=== PATIENT | female | born 1990 | race Two or more races ===

== ENCOUNTER 2022-05-24 21:35 | Emergency (ER) | payer MEDICAID ==
[~2022-05-24] VITALS: Ht 170.2 cm; Wt 205.0 kg
[2022-05-24 23:11] VITALS: BP 144/96
== END 2022-05-25 00:45 | disposition left against medical advice (07) ==
LOC: ER 21:35
DX: R10.9 Unspecified abdominal pain (principal); Z53.21 Procedure and treatment not carried out due to patient leaving prior to being seen by health care provider

== ENCOUNTER 2022-10-27 23:34 | Emergency (ER) | payer MEDICAID ==
[~2022-10-27] VITALS: Ht 170.2 cm; Wt 160.8 kg
[2022-10-27 23:56] VITALS: BP 149/104
[2022-10-28] MEDS ORDERED: IBUP-1455 PO (00:33)
[2022-10-28] MEDS ORDERED: AUG875T PO (00:33)
[2022-10-28] MEDS ORDERED: KETOROLAC TROMETH 30 MG/ML 1ML VIAL IM ONE (00:45)
== END 2022-10-28 00:40 | disposition home or self-care (01) ==
LOC: ER 23:34
DX: K04.7 Periapical abscess without sinus (principal); Z88.1 Allergy status to other antibiotic agents; Z88.6 Allergy status to analgesic agent
CPT/HCPCS: 96372; 99283; J1885